=== PATIENT | male | born 1980 | race African-American/Black ===

== ENCOUNTER 2021-07-03 01:03 | Emergency (ER) | payer OTHER ==
[2021-07-03 01:35] LABS: #Basophils 0.2 thou/uL (0.0-0.2); #Eosinphils 0.2 thou/uL (0.0-0.7); #Lymphocytes 1.2 thou/uL (1.20-3.40); #Monocytes 1.3 thou/uL (0.11-0.59); #Neutrophils 6.7 thou/uL (1.40-6.50); %Basophils 2.3 % (0.0-1.0); %Eosinophils 1.8 % (0.0-10.0); %Lymphocytes 12.4 % (21.0-51.0); %Monocytes 13.2 % (0.0-10.0); %Neutrophils 70.4 % (42.0-75.0); Hemoglobin 12.2 g/dL (14.0-18.0); Mean Corpuscular HGB CONC 31.4 g/dL (32.0-36.0); Mean Corpuscular Volume 86.2 fL (78.0-98.0); Mean Platelet Volume 7.7 fL (7.4-10.4); Platelet Count 410 thou/uL (130-400); RBC Distribution Width 13.4 % (11.5-14.5); White Blood Cell (WBC) Count 9.5 thou/uL (4.8-10.8)
[2021-07-03] MEDS ORDERED: Cefepime 2 GM VIAL ONE (01:35)
[2021-07-03] MEDS ORDERED: Sodium Chloride 0.9% 1,000 ML ONE ×2 (01:35→03:02)
[2021-07-03] MEDS ORDERED: Sodium Chloride 0.9% 100 ML ONE (01:35)
[2021-07-03 01:43] LABS: Bilirubin Negative (Negative); Blood, Urine Negative (Negative); Clarity Clear (Clear); Glucose, Urine (Dipstick) >=1000 mg/dL (Negative); Ketone, Urine 80 mg/dL (Negative); Leukocyte Negative (Negative); Nitrite Negative (Negative); Protein, Urine (Dipstick) Trace mg/dL (Neg-Trace)
[2021-07-03 01:48] LABS: ALT (SGPT) 16 U/L (8-55); AST (SGOT) 11 U/L (5-34); Albumin 3.3 g/dL (3.5-5.0); Alkaline Phosphatase 61 U/L (40-110); Anion Gap 16 mmol/L (10-20); BUN (Urea Nitrogen) 6 mg/dL (8.9-20.6); Bilirubin, Total 0.2 mg/dL (0.2-1.2); CK (CPK) 69 U/L (30-200); Calc. Creatinine Clearance 0 mL/min (70-130); Calcium 9.2 mg/dL (7.8-10.44); Carbon Dioxide 22 mmol/L (22-29); Chloride 100 mmol/L (98-107); Globulin 4.6 g/dL (2.4-3.5); Glucose 408 mg/dL (70-105); Protein, Total 7.9 g/dL (6.0-8.3); Sodium 134 mmol/L (136-145)
[2021-07-03] MEDS ORDERED: Insulin Regular 300 UNITS/3 ML VIAL ONE (01:58)
[2021-07-03] MEDS ORDERED: Vancomycin HCl 750 MG VIAL ONE (02:11)
[2021-07-03] MEDS ORDERED: Sodium Chloride 0.9% 500 ML ONE (02:11)
[2021-07-03 02:16] LABS: SARS-CoV-2 NAA Rapid Test Not Detected (NotDetected)
[2021-07-03] MEDS ORDERED: Fentanyl 100 MCG/2 ML VIAL ONE (02:26)
[2021-07-03] MEDS ORDERED: Ondansetron PF 4 MG/2 ML Vial ONE (02:29)
[2021-07-03] MEDS ORDERED: Morphine 4 MG/ML VIAL ONE (08:31)
== END 2021-07-03 10:08 | disposition short-term general hospital (02) ==
LOC: NAV ERS 01:03
DX: L03.116 Cellulitis of left lower limb (principal); I44.4 Left anterior fascicular block; R00.0 Tachycardia, unspecified; I10 Essential (primary) hypertension; E78.5 Hyperlipidemia, unspecified; K21.9 Gastro-esophageal reflux disease without esophagitis; J45.909 Unspecified asthma, uncomplicated; Z20.822 Contact with and (suspected) exposure to COVID-19; Z79.899 Other long term (current) drug therapy; Z89.512 Acquired absence of left leg below knee
CPT/HCPCS: 36416; 80053; 81003; 82550; 83605; 85025; 87040; 87086; 87149; 93005; 96365; 96366; 96367; 96375; J0692; J1815; J2270; J2405; J3010; J3370; J3490; J7030; J7050; U0002